=== PATIENT | male | born 1975 | race Caucasian/White ===

== ENCOUNTER 2022-01-19 19:42 | Outpatient (CLI) | payer BC, SELFPAY ==
[2022-01-19 13:54] LABS: Cholesterol* 187 mg/dL (90-199)
[2022-01-19 13:55] LABS: HDL Cholesterol* 46 mg/dL (>=40); LDL Cholesterol Calculated 111 mg/dL (<100); Triglycerides* 151 mg/dL (40-149)
[2022-01-20 12:56] LABS: Alanine Aminotransferase* 38 U/L (4-50)
[2022-01-22 12:45] LABS: Chloride* 98 mmol/L (96-114); Sodium* 138 mmol/L (135-149)
[2022-01-22 12:48] LABS: Blood Urea Nitrogen* 25 mg/dL (5-24); Carbon Dioxide* 29 mmol/L (20-32); Creatinine* 1.4 mg/dL (0.5-1.5); Estimated Glomerular Filt Rate 62 ml/min; Glucose* 109 mg/dL (60-115)
[2022-01-22 12:49] LABS: Calcium* 10.3 mg/dL (8.4-10.6)
== END 2022-01-19 19:43 | disposition home or self-care (01) ==
PROVIDERS: PCP Family Medicine; Visit Provider Family Medicine
DX: Z00.00 Encounter for general adult medical examination without abnormal findings (principal); E78.00 Pure hypercholesterolemia, unspecified; I10 Essential (primary) hypertension; M54.9 Dorsalgia, unspecified
CPT/HCPCS: 80048; 80061; 84460

== ENCOUNTER 2022-02-15 11:36 | Outpatient (CLI) | payer BC, SELFPAY ==
--- NOTE | 2022-02-15 13:01 | W.ANESCHARGE ---
Anesthesia Charges Start Date/Time Anesthesia Start Date: 02/15/22 Anesthesia Start Time: 12:15 Stop Date/Time Anesthesia Stop Date: 02/15/22 Anesthesia Stop Time: 13:00 Summary Emergency: No
--- NOTE | 2022-02-15 13:22 | W.ANESCHARGE ---
Anesthesia Charges Start Date/Time Anesthesia Start Date: 02/15/22 Anesthesia Start Time: 12:15 Stop Date/Time Anesthesia Stop Date: 02/15/22 Anesthesia Stop Time: 13:00 Summary Emergency: No
== END 2022-02-15 11:37 | disposition home or self-care (01) ==
PROVIDERS: PCP Family Medicine; Visit Provider Surgery
DX: Z12.11 Encounter for screening for malignant neoplasm of colon (principal); K63.5 Polyp of colon; K62.1 Rectal polyp; K57.30 Diverticulosis of large intestine without perforation or abscess without bleeding
CPT/HCPCS: 00811; 45385; 88305

== ENCOUNTER 2023-02-28 08:01 | Outpatient (CLI) | payer BC, SELFPAY | END 2023-02-28 08:02 | disposition home or self-care (01) | LOC: NFLDREF 03-01 22:16 | PROVIDERS: PCP Family Medicine; Referring Provider Family Medicine; Visit Provider Family Medicine | DX: Z00.00 Encounter for general adult medical examination without abnormal findings (principal); E78.00 Pure hypercholesterolemia, unspecified; I10 Essential (primary) hypertension | CPT/HCPCS: 80053; 80061 ==

== ENCOUNTER 2024-03-26 08:08 | Outpatient (CLI) | payer BC, SELFPAY | END 2024-03-26 08:09 | disposition home or self-care (01) | LOC: NFLDREF 03-28 08:22 | PROVIDERS: PCP Family Medicine; Referring Provider Family Medicine; Visit Provider Family Medicine | DX: Z12.5 Encounter for screening for malignant neoplasm of prostate (principal); E78.00 Pure hypercholesterolemia, unspecified; I10 Essential (primary) hypertension | CPT/HCPCS: 80053; 80061; G0103 ==

== ENCOUNTER 2024-03-30 15:10 | Outpatient (CLI) | payer BC, SELFPAY | END 2024-03-30 15:11 | disposition home or self-care (01) | LOC: NFLDREF 04-02 06:58 | PROVIDERS: PCP Family Medicine; Referring Provider Family Medicine; Visit Provider Family Medicine | DX: E11.9 Type 2 diabetes mellitus without complications (principal); I10 Essential (primary) hypertension | CPT/HCPCS: 82043; 82570 ==

== ENCOUNTER 2025-04-01 08:07 | Outpatient (CLI) | payer BC, SELFPAY | END 2025-04-01 08:08 | disposition home or self-care (01) | LOC: NFLDREF 04-04 11:01 | PROVIDERS: PCP Family Medicine; Referring Provider Family Medicine; Visit Provider Family Medicine | DX: I10 Essential (primary) hypertension (principal); E78.00 Pure hypercholesterolemia, unspecified; Z12.5 Encounter for screening for malignant neoplasm of prostate; Z13.1 Encounter for screening for diabetes mellitus | CPT/HCPCS: 80053; 80061; 84270; 84402; 84403; G0103 ==

== ENCOUNTER 2025-04-05 15:40 | Outpatient (CLI) | payer BC, SELFPAY | END 2025-04-05 15:41 | disposition home or self-care (01) | LOC: NFLDREF 04-12 05:46 | PROVIDERS: PCP Family Medicine; Referring Provider Family Medicine; Visit Provider Family Medicine | DX: E11.9 Type 2 diabetes mellitus without complications (principal) | CPT/HCPCS: 82043; 82570 ==